=== PATIENT | male | born 1945 | race Caucasian/White ===

== ENCOUNTER 2016-10-21 06:21 | Day surgery (SDC) | payer MEDICARE ==
[~2016-10-21] VITALS: Ht 172.7 cm; Wt 80.1 kg
[~2016-10-21 06:21] MED LIST: ADVAI100I PO; ALBU8I INH; ASPI81TA82 PO; ATOR20TA PO; CLOP75 PO; CYCL1PAK PO; FISH100020 PO; FLON0.053; LANO0.1212 PO; LISI-357 PO; METO25 PO; MONT10 PO; SPIRCAP INH; Z.0.NO CURRENT MEDS; ZOLP5TAB3 PO; [UNRECOGNIZED DRUG - CODE] PO
[2016-10-21] MEDS ORDERED: SODIUM CHLORIDE 0.9% FLUSH 10 ML FLUSH IV FLUSH PRN ×2 (06:45)
[2016-10-21] MEDS ORDERED: SODIUM CHLOR 0.9% 1000 ML INJ 1,000 ML IV SCH (06:45)
[2016-10-21 06:57] VITALS: BP 136/78; PULSE 84; RESP 16; TEMP 97.9; O2SAT 95
[2016-10-21] MEDS ORDERED: VENTAER INH (07:04)
[2016-10-21] MEDS ORDERED: CYCL1TAB29 PO (07:04)
[2016-10-21] MEDS ORDERED: DIGO0.12 PO (07:04)
[2016-10-21] MEDS ORDERED: CILO100T PO (07:04)
[2016-10-21] MEDS ORDERED: LISI-519 PO (07:04)
[2016-10-21] MEDS ORDERED: FLUT50SP EACH NARE (07:04)
[2016-10-21] MEDS ORDERED: ATOR20TA15 PO (07:04)
[2016-10-21] MEDS ORDERED: METO50TA PO (07:04)
[2016-10-21] MEDS ORDERED: ZOLP5TAB3 PO (07:04)
[2016-10-21] MEDS ORDERED: ASPI1TAB69 PO (07:04)
[2016-10-21] MEDS ORDERED: IOHEXOL 350 MG/ML 100 ML BTL (for Cath Lab) OTHER ONE (08:30)
[2016-10-21] MEDS ORDERED: IOHEXOL 350 MG/ML 50 ML BTL (for Cath Lab) OTHER ONE (08:30)
[2016-10-21] MEDS ORDERED: MIDAZOLAM HCL 5 MG/5 ML VIAL ONE (08:39)
[2016-10-21] MEDS ORDERED: HEPARIN-NS/PF INJ 500 ML ONE (08:40)
[2016-10-21] MEDS ORDERED: ONDANSETRON HCL 4 MG/2 ML VIAL IV PRN (09:30)
[2016-10-21] MEDS ORDERED: BACITRACIN OINT 0.9 GM PKT TOP ONE (09:30)
[2016-10-21] MEDS ORDERED: ATROPINE SULFATE 1 MG/ML VIAL IV PRN (09:30)
[2016-10-21] MEDS ORDERED: METOCLOPRAMIDE HCL 10 MG/2 ML VIAL IV PRN (09:30)
[2016-10-21] MEDS ORDERED: SODIUM CHLOR 0.9% 250 ML INJ 250 ML IV PRN (09:30)
[2016-10-21] MEDS ORDERED: oxyCODONE/ACETAMINOPHEN 5 MG/325 MG TAB PO PRN ×2 (09:30)
[2016-10-21] MEDS ORDERED: LORazepam 2 MG/ML VIAL IV PRN (09:30)
[2016-10-21] MEDS ORDERED: MISC INFORMATION XX ONE (09:30)
[2016-10-21] MEDS ORDERED: LIDOCAINE HCL 1% 50 ML VIAL INFIL PRN (09:30)
--- NOTE | 2016-10-21 09:34 | CATHPROC ---
[employer] HIS Report Study Information Study Number Scheduled Start Study Start [id number] 10/21/2016 Oct 21 2016 8:00AM Referring Institution Admit Source Facility Department 1 Other [facility] - Store Keeper Physician and Clinical Staff Initial Serjio Roca Bank Clerk Jus Kinsey,RN Recorder Alon Bishop,RT(R) Scrub Piper Ochoa,SENIOR SOFTWARE TEST ENGINEER TECH2 Procedures Performed Procedure Location (Site) Vessel Name Abdominal Angiogram Abd Aorta (A3) Aorta Wire insertion Fem Art (right) Femoral Art Equipment Time Salt Cutter Description Size Mfg Part Number Used/Scraped 08:45 CORDIS/ RUIZ RIM SUPER TORQUE CATHETER FR 5 [id number] Used 08:45 MALLINCKRODT SYRINGE, ANGIOMAT 150ML 150ML [id number] Used 08:45 MEDLINE [employer] PACK, CCL CUSTOM * [id number] Used 08:45 MEDLINE PACER PEN, SKIN DUAL W/ RULER * [id number] Used 08:45 [employer] MEDICAL WIRE, EXCHANGE 260CM 3MMJ 260CM [id number] Used 08:45 NAMIC MANIFOLD, 4 PORT * [id number] Used 08:45 NAMIC TUBING, HIGH PRESSURE 48" 48" [id number] Used 09:05 NAMIC TUBING, HIGH PRESSURE 48" 48" [id number] Used 08:45 NYCOMED OMNIPAQUE, 300 MG, 100ML 100ML [id number] Used 08:45 NYCOMED OMNIPAQUE, 300 MG, 100ML 100ML [id number] Used 08:45 NEGRO MEDICAL BLANKET,WARM AIR CCL * [id number] Used 08:45 TERUMO MEDICAL SHEATH, FR5 TERUMO (10CM) FR 5 [id number] Used WIRE, ANGLE GLIDE STIFF .035 08:45 TERUMO MEDICAL/RUIZ 260CM [id number] Used 260CM History: Allergies Allergy Reaction No Known Allergies History: Stress Tests Stress or Imaging Studies Performed No Medication Medication Total Dose (Bolus/Oral) Medication Total Dosage/Unit 1% XYLOCAINE 20 mL FENTANYL 50 mcg OXYGEN 2 l/min VERSED 2 mg Medications (Bolus/Oral) Medication Time Given Dosage/Unit Administered By Reason FENTANYL 10/21/2016 8:58:23 AM 50 mcg Jus Kinsey 50 mcg FENTANYL given in lab by Jus Kinsey, RN in Left Antecubital via Peripheral IV. Ordered by Serjio Ramírez. VERSED 10/21/2016 8:58:44 AM 2 mg Jus Kinsey 2 mg VERSED given in lab by Jus Kinsey, RN in Left Antecubital via Peripheral IV. Ordered by Serjio Castillo. 1% XYLOCAINE 10/21/2016 9:03:02 AM 20 mL Serjio Ramírez 20 mL 1% XYLOCAINE given in lab by Serjio Ramírez in Right Groin via Subcutaneous. Ordered by Serjio Ramírez. OXYGEN 10/21/2016 9:04:01 AM 2 l/min Jus Kinsey 2 l/min OXYGEN given in lab by Jus Kinsey, RN via Nasal. Ordered by Serjio Ramírez. Medication (Drip) Medication Time Given Dosage/Unit Concentration/Unit Diluent (ml) Solution IV Solutions 10/21/2016 8:43:05 AM 0 mL (IV) 500 NaCl .9 Patient arrived on IV Solutions in Left Antecubital via Peripheral IV. Pump/Drip Flow = 20 ml/hr usin g NaCl .9. Reason: As per physicians verbal order. Initial Case Assessment Cardiovascular HR Rhythm NIBP Chest Pain 73 sr 113/76 0 Edema Present Skin color Skin None Normal Warm Dry Circulatory - Right Pulses Dorsalis Pedis Posterior Tibial Femoral d 1 3 Scale (0,1,2,3,4,d) Circulatory - Left Pulses Dorsalis Pedis Posterior Tibial Femoral 0 d d Scale (0,1,2,3,4,d) Neurological State Oriented to time-place- Alert Moves all extremities person Respiration - General Respiration Rate SpO2 (%) O2 (lpm) (B/min) 18 98 0 Final Case Assessment Cardiovascular HR Rhythm NIBP Chest Pain 75 SR 99/63 0 Edema Present Skin color Skin None Normal Warm Dry Circulatory - Right Pulses Dorsalis Pedis Posterior Tibial Femoral d 1 3 Scale (0,1,2,3,4,d) Circulatory - Left Pulses Dorsalis Pedis Posterior Tibial Femoral 0 d d Scale (0,1,2,3,4,d) Neurological State Oriented to time-place- Alert Moves all extremities person Respiration - General Respiration Rate SpO2 (%) O2 (lpm) (B/min) 15 98 2 Chronological Log Time Study Chronological Log 8:30:21 Patient arrived via Bed. 8:30:24 Patient Name, D.O.B, / Armband Verified By R.N. 8:30:25 Consent signed by the physician and the patient and verified by the Store Keeper staff. 8:30:26 Pre-op and post- op instructions given; patient acknowledges understanding of instructions. 8:30:55 Verbal Stimulation=2 Physical Stimulation=2 Airway=2 Respiration=2 TOTAL=8. (0=absent, 1=li mited, 2=present) Vitals capture started with the following parameters, Patient=Adult, Interval=5 min, Initial Pr zzhsqs=392 mmHg, 8:34:57 Deflation Rate=5 mmHg 8:35:35 HR=77 bpm, TQSZ=706/73 mmhg, SpO2=98.0 %, Resp=23 B/min, Vargas=2 8:40:32 HR=74 bpm, PKNC=633/76 mmhg, SpO2=99.0 %, Resp=17 B/min, Vargas=2 8:42:07 Presedation assessment performed by Store Keeper RN. 8:42:14 Patient has been NPO for More than 6Hrs. 8:42:21 Skin Breakdown-none present per patient. 8:42:53 A # 20 IV was noted in the Antecubital (left). Grade = 0 Patient arrived on IV Solutions in Left Antecubital via Peripheral IV. Pump/Drip Flow = 20 ml/h r using NaCl .9. Reason: 8:43:05 As per physicians verbal order. Assessment: Initial Case, HR=73 BPM, Rhythm=sr, UVVF=744/76 mmhg, Chest Pain=0, Edema=None, Col or=Normal, Skin = Warm, Dry Right Pulses: Carlos Eduardo Ped=d, Post Tib=1, Femoral=3 8:43:26 Left Pulses: Carlos Eduardo Ped=0, Post Tib=d, Femoral=d Neurological: State=Alert, Ox3, MATA Respiration: Resp=18 B/min, SpO2=98 %, O2=0 lpm 8:44:27 Bilateral groins prepped with 2% chlorhexidine, and with a 3 min. waiting time. 8:45:29 UP=304 bpm, GZGG=988/81 mmhg, SpO2=98.0 %, Resp=13 B/min, Vargas=2 8:48:37 Bilateral groins prepped with 2% chlorhexidine, and with a 3 min. waiting time. 8:50:25 Pressure channel 1 zeroed. 8:50:32 HR=75 bpm, ADWA=921/80 mmhg, SpO2=98.0 %, Resp=17 B/min, Vargas=2 8:52:06 paged 8:56:06 HR=86 bpm, UHJN=324/75 mmhg, SpO2=96.0 %, Resp=19 B/min, Vargas=2 8:56:53 MD arrived. 8:58:23 50 mcg FENTANYL given in lab by Jus Kinsey, RN in Left Antecubital via Peripheral IV. Or dered by Serjio Ramírez. 8:58:44 2 mg VERSED given in lab by Jus Kinsey, RN in Left Antecubital via Peripheral IV. Ordere d by Serjio Ramírez. 9:00:36 HR=75 bpm, TDOF=327/61 mmhg, SpO2=92.0 %, Resp=13 B/min, Vargas=2 Time Out. Correct patient, correct procedure,correct physician, ,power injector loaded with cont rast with surgical team 9:01:30 present. Time Out Concurred by MD, individual staff and INTERNAL MEDICINE PHYSICIAN ASSISTANT in procedure. Power injector lo aded by Jus Kinsey RN, verified by Piper Ochoa. 9:02:46 Case Start 9:02:49 Verbal Stimulation=2 Physical Stimulation=2 Airway=2 Respiration=2 TOTAL=8. (0=absent, 1=tompkins ited, 2=present) 9:03:02 20 mL 1% XYLOCAINE given in lab by Serjio Ramírez in Right Groin via Subcutaneous. Ordered b y Serjio Ramírez. 9:04:01 2 l/min OXYGEN given in lab by Jus Kinsey, RN via Nasal. Ordered by Serjio Ramírez. 9:05:20 Access site was Right Femoral Artery. 9:05:31 HR=81 bpm, BGXS=459/67 mmhg, SpO2=97.0 %, Resp=10 B/min, Vargas=2 9:05:36 A SHEATH, FR5 TERUMO (10CM) FR 5 was advanced into the Fem Art (right) using the Modified Se herrera technique. A PIGTAIL ANG. INFINITI CATHETER FR 5 was advanced over a wire. OMNIPAQUE, 300 MG, 100ML 100ML w as used 9:06:39 for injections. 9:08:05 Wire removed 9:08:11 Through a PIGTAIL ANG. INFINITI CATHETER FR 5, The Abdominal Aorta was injected with 12 cc's of contrast. A RIM SUPER TORQUE CATHETER FR 5 was advanced over a wire. OMNIPAQUE, 300 MG, 100ML 100ML was us ed for 9:09:02 injections. 9:10:32 HR=72 bpm, UKAH=650/68 mmhg, SpO2=97.0 %, Resp=12 B/min 9:10:33 Manual injections down left leg through 5 burmese rim catheter. 9:14:19 A WIRE, EXCHANGE 260CM 3MMJ 260CM was inserted via Fem Art (right). 9:14:30 Catheter was removed OTW. 9:15:25 Wire removed 9:15:33 HR=74 bpm, HHVC=094/65 mmhg, SpO2=98.0 %, Resp=12 B/min, Vargas=2 9:15:38 Manual injections down right leg through 5 burmese sheath. 9:17:14 Case End 9:18:20 Sheath removed; pressure applied to access site by Piper Ochoa. 9:20:36 HR=75 bpm, NIBP=94/61 mmhg, SpO2=98.0 %, Resp=13 B/min, Vargas=2 9:25:11 No case complications noted. 9:25:19 Cine recording checked. 9:25:24 Bedside Report will be given. 9:25:31 HR=75 bpm, NIBP=99/63 mmhg, SpO2=97.0 %, Resp=13 B/min, Vargas=2 9:25:51 Contrast Scanned Assessment: Final Case, HR=75 BPM, Rhythm=SR, NIBP=99/63 mmhg, Chest Pain=0, Edema=None, Color =Normal, Skin = Warm, Dry Right Pulses: Carlos Eduardo Ped=d, Post Tib=1, Femoral=3 9:26:15 Left Pulses: Carlos Eduardo Ped=0, Post Tib=d, Femoral=d Neurological: State=Alert, Ox3, MATA Respiration: Resp=15 B/min, SpO2=98 %, O2=2 lpm 9:28:53 Sterile dressing applied to site 9:30:32 HR=76 bpm, NIBP=97/67 mmhg, SpO2=98.0 %, Resp=16 B/min, Vargas=2 9:30:46 Vitals capture stopped. 9:34:30 Patient moved to stretcher End Study - Contrast Media Used In Study Contrast Total Opened (mL) Total Used (mL) Total Wasted (mL) Omnipaque 90 90 0 End Study - Radiation Exposure Fluoro Time (minutes) 2.1 End Study - Patient Disposition Complications Transferred To No Outpatient Bed
--- NOTE | 2016-10-21 11:05 | MA ---
cc: MIRTHA GROVER DATE: 10/21/2016 PROCEDURE PERFORMED 1. Fluoroscopy with interpretation. 2. Descending aortography. 3. Bilateral lower extremity peripheral angiography with first, second, third order visualization and interpretation. METHOD The risks, benefits and alternatives were discussed with the patient. The patient understood and consented to the procedure. The patient was brought into the catheterization lab and placed on the catheterization table. The right groin was prepped and draped in sterile fashion. The right groin was anesthetized with 2% lidocaine. The right common femoral was cannulated and a 5-Emirati, 11 cm sheath was placed without difficulty. DESCENDING AORTOGRAPHY Descending aortography was performed in anterior and posterior views using a 24 cc contrast injection with good opacification. The descending aortography revealed a small infrarenal aortic aneurysm, bilateral renal arteries widely patent. PERIPHERAL ANGIOGRAPHY 1. The left common iliac artery has a distal 40% eccentric stenosis. The left internal and external iliac arteries have minor luminal irregularities. The left common femoral is heavily calcified and occluded. The left superficial femoral artery recanalizes via collaterals along with the profunda both of which have only minor luminal irregularities. The left popliteal has minor luminal irregularities. There is three-vessel runoff below the knee. Distal vessel at the level of the ankle is not well-visualized due to slow flow. 2. The right common internal and external iliac arteries have minor luminal irregularities. The right common femoral and profunda arteries are widely patent. The right superficial femoral and popliteal arteries have minor luminal irregularities. There does appear to also be three-vessel runoff below the knee in the right lower extremity, although again flow is slow distally due to small vessel disease. CONCLUSIONS 1. 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 2. 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 3. Small vessel distal infrapopliteal disease bilaterally. 4. Small infrarenal aortic aneurysm. PLAN At this point I think he would be served best with a common femoral artery endarterectomy. Will consult vascular surgery. He is already on cilostazol. Anticipate discharge later today. The sheath was removed and HemoBand applied. MD BRENDA Mcclure/MIKAYLA /9:29 AM /10:57 AM
--- NOTE | 2016-10-21 11:15 | PD.VS.PN ---
Subjective Subjective/Hospital Course Pt with L LE claudication , no rest pain or tissue loss Notes that his LEFT leg hurts with ambulating modest distances. Objective Vitals/I&O Date Time Temp Pulse Resp B/P Pulse Ox O2 Delivery O2 Flow Rate FiO2 10/21/16 09:45 98 Room Air 10/21/16 06:57 97.9 84 16 136/78 95 Physical Exam resting in DOCU, no distress alert and oriented. Laboratory Laboratory Tests Test 10/21/16 06:50 Blood Type A POSITIVE Antibody Screen NEGATIVE Blood Bank Comment Imaging angiogram reviewed - CERTIFIED MAINTENANCE WELDER occlusion with distal CERTIFIED MAINTENANCE WELDER reconstitution; no inflow disease and good outflow Assessment and Plan Plan I talked with him and his about natural history of claudication and potential intervention to improve circulation (CERTIFIED MAINTENANCE WELDER TEA/patch vs iliofemoral bypass). Discussed perioperative risks/benefits. They will see me in my office at their convenience to schedule. Thank you very much. Edmar Handy MD FACS potato loader [facility] - Heart and Vascular Surgery at [facility] [phone] Edmar Handy MD October 21, 2016 11:15
== END 2016-10-21 14:10 | disposition home or self-care (01) ==
LOC: HCAT 06:21 → HDIC 06:22 → HCAT 14:10
PROVIDERS: ATTEND Internal Medicine
DX: I73.9 Peripheral vascular disease, unspecified (principal); I74.5 Embolism and thrombosis of iliac artery; I77.811 Abdominal aortic ectasia; I70.0 Atherosclerosis of aorta; E11.51 Type 2 diabetes mellitus with diabetic peripheral angiopathy without gangrene; J44.9 Chronic obstructive pulmonary disease, unspecified; J20.9 Acute bronchitis, unspecified; I48.0 Paroxysmal atrial fibrillation; E87.5 Hyperkalemia; I10 Essential (primary) hypertension; E78.5 Hyperlipidemia, unspecified; R00.0 Tachycardia, unspecified; J06.9 Acute upper respiratory infection, unspecified; Z87.891 Personal history of nicotine dependence
CPT/HCPCS: 36200; 36245; 75625; 75716; 86850; 86900; 86901; C1769; C1893; J1644; J2250; J3010; J7030; Q9967

== ENCOUNTER 2016-11-16 10:57 | Inpatient (IN) | payer MEDICARE ==
[~2016-11-16] VITALS: Ht 172.7 cm; Wt 79.0 kg
[~2016-11-16 10:57] MED LIST changes: -ASPI1TAB69 PO; -ASPI81TA11 PO; -CYCL1TAB29 PO; -HYDR-3516 PO; -OXYC-392 PO; -UMEC1AER INH; -WALKER WHEELS/F1 MIS
[2016-11-16] MEDS ORDERED: UMEC1AER INH (11:44)
[2016-11-16] MEDS ORDERED: ASPI81TA11 PO (11:44)
[2016-11-21] VITALS (12 sets, daily range): BP systolic 119–131; BP diastolic 70–78; PULSE 68–88; RESP 15–18; TEMP 97.9–98.4; O2SAT 93–94
[2016-11-21] MEDS ORDERED: POVIDONE IODINE 5% (ANTISEPSIS KIT) 4 APPLICATIONS EACH NARE PRN (10:45)
[2016-11-21] MEDS ORDERED: SODIUM CHLORID 0.9% 500 ML IV PRN (10:45)
[2016-11-21] MEDS ORDERED: METOPROLOL TARTRATE 25 MG TAB PO PRN (10:45)
[2016-11-21] MEDS ORDERED: INSULIN HUMAN REGULAR 1,000 UNITS/10 ML VIAL SQ PRN (10:45)
[2016-11-21] MEDS ORDERED: LACTATED RINGER'S 1000 ML IV PRN (10:45)
[2016-11-21] MEDS ORDERED: CHLORHEXIDINE GLUCONATE 2 % 1 PACK (2 CLOTHS) TOPICAL PRN (10:45)
--- NOTE | 2016-11-21 11:05 | PD.VS.PN ---
Pre-operative Note Pre-operative diagnosis: PAD, L LE claudication Planned procedure: L groin reconstruction Interval History: The patient has persistent L LE claudication but no rest pain and no tissue loss. No F/C/N/V or other medical symptoms that should preclude surgery. Labs: Hct 44 plt 271 Cr 1.1 Blood: T&S Imaging: LE angiogram reviewed Orders: NPO Ancef 2g IV OCTOR Post-operative destination: PACU, [facility] Operative site marked: Yes Consent: Informed consent has been obtained from Edmar Flower. I have explained the procedure in detail and discussed the risks, benefits, and potential complications. All questions have been answered. Patient contact information: [phone] Edmar Handy MD Nov 21, 2016 11:04
[2016-11-21] MEDS ORDERED: BUPIVACAINE/EPINEPHRINE 0.5% PF 30 ML VIAL ONE (11:19)
[2016-11-21] MEDS ORDERED: VANCOMYCIN HCL 1000 MG VIAL ONE (11:19)
[2016-11-21] MEDS ORDERED: THROMBIN (TOPICAL) 20,000 UNIT SPRAY KIT ONE (11:19)
[2016-11-21] MEDS ORDERED: ceFAZolin 2 GM PREMIX 50 ML ONE (11:19)
[2016-11-21] MEDS ORDERED: HEPARIN SODIUM - IV 10,000 UNITS/10 ML VIAL ONE (11:19)
[2016-11-21 13:26] LABS: MRSA PCR NEGATIVE (NEGATIVE); STAPH AUREUS PCR POSITIVE (NEGATIVE)
[2016-11-21] MEDS: LACTATED RINGER'S 1000 ML INJ 1,000 ML IV SCH ×2 (14:06→15:00)
--- NOTE | 2016-11-21 14:06 | HHI.PR ---
cc: Serjio Ramírez MD Immediate Post Op Note Procedure Date: Nov 21, 2016 Pre Op Diagnosis: LEFT leg claudication, PAD Post Op Diagnosis: LEFT leg claudication, PAD Surgeon: Edmar Handy Erp Consultant(s): Agapito Mcwilliams Procedure: 1. LEFT ilioprofunda bypass with 8mm Dacron 2. LEFT INSURANCE ASSISTANT-SFA bypass with 6mm Dacron Findings: occlusion of L INSURANCE ASSISTANT and calcific disease of L SFA proximally as well as proximal profunda Complications: none apparent Specimen(s) removed: none for pathology Estimated blood loss: 100mL Anesthesia: General Drains: None Fluids: 1400 mL x'oid; 150 mL UOP IVF Patient to: PACU Patient Condition: Good Implant/Devices: SEE IMPLANT LOG (if applicable) Date/Time of Procedure: SEE SURGICAL CARE RECORD Edmar Handy MD Nov 21, 2016 14:05
[2016-11-21] MEDS ORDERED: fentaNYL CITRATE 250 MCG/5 ML AMP ONE (14:15)
[2016-11-21] MEDS ORDERED: HYDROmorphone HCL 2 MG TAB PO PRN (14:15)
[2016-11-21] MEDS ORDERED: DO NOT ADM ANY ANTICOAGULANT DRUGS PRN (14:25)
[2016-11-21] MEDS: ENOXAPARIN SODIUM 30 MG/0.3 ML SYRINGE SQ SCH (15:00)
[2016-11-21] MEDS ORDERED: PROPOFOL 200 MG/20 ML AMP IV ONE (15:58)
[2016-11-21] MEDS ORDERED: PHENYLEPHRINE HCL 10 MG/ML VIAL IV ONE (15:58)
[2016-11-21] MEDS ORDERED: PHENYLEPH/NS 1000 MCG/10 ML SYR IV ONE (15:58)
[2016-11-21] MEDS ORDERED: NEOSTIGMINE METHYLSULFATE 10 MG/10 ML VIAL IV PUSH ONE (15:59)
[2016-11-21] MEDS ORDERED: NORMOSOL R INJ 1,000 ML IV ONE (15:59)
[2016-11-21] MEDS ORDERED: LORazepam 1 MG TAB PO PRN (16:30)
[2016-11-21] MEDS ORDERED: FLUMAZENIL 0.5 MG/5 ML VIAL IV PUSH PRN (16:30)
[2016-11-21] MEDS ORDERED: LORazepam 2 MG TAB PO PRN (16:30)
[2016-11-21] MEDS ORDERED: LORazepam 2 MG/ML VIAL IV PUSH PRN ×4 (16:30)
--- NOTE | 2016-11-21 16:41 | PD.VS.PN ---
Subjective POD #: 0 Procedure(s): L groin reconstruction Subjective/Hospital Course doing well, pain controlled Objective Vitals/I&O Date Time Temp Pulse Resp B/P Pulse Ox O2 Delivery O2 Flow Rate FiO2 11/21/16 10:45 97.9 68 18 119/70 94 Exam: resting comfortable VAC in place Palpable PT Motor intact Laboratory Laboratory Tests Test 11/21/16 10:55 Nasal Screen MRSA (PCR) NEGATIVE Staphylococcus aureus POSITIVE (PCR)(LAB) Blood Type A POSITIVE Antibody Screen NEGATIVE Assessment and Plan Plan 1. Cardac diet 2. OOB TC tomorrow 3. D/C Wilcox in a.m. 4. Resume all home meds Discharge Planning likely Mon Edmar Handy MD Nov 21, 2016 16:41
[2016-11-21] MEDS: ATORVASTATIN 40 MG TAB PO SCH (20:34)
[2016-11-21] MEDS: METOPROLOL TARTRATE 50 MG TAB PO SCH (20:35)
[2016-11-21] MEDS: ZOLPIDEM TARTRATE 5 MG TAB PO PRN (21:09)
[2016-11-22] VITALS (27 sets, daily range): BP systolic 102–127; BP diastolic 64–77; PULSE 74–92; RESP 15–19; TEMP 98.4–99.9; O2SAT 93–96
--- NOTE | 2016-11-22 08:26 | PD.VS.PN ---
Subjective POD #: 1 Procedure(s): L groin reconstruction Subjective/Hospital Course Pt w/o complaints this am Reported he needs his daily nasal spray Pt w/o pain Objective Vitals/I&O Date Time Temp Pulse Resp B/P Pulse Ox O2 Delivery O2 Flow Rate FiO2 11/22/16 06:19 76 11/22/16 05:00 82 11/22/16 04:08 78 11/22/16 03:47 77 11/22/16 03:47 98.6 83 15 121/66 95 11/22/16 02:00 79 11/22/16 01:35 87 11/22/16 00:00 74 11/21/16 23:54 98.4 82 15 122/76 94 11/21/16 23:00 78 11/21/16 22:00 78 11/21/16 21:00 78 11/21/16 20:00 84 11/21/16 19:55 98.3 88 15 131/78 93 11/21/16 19:00 87 11/21/16 18:34 87 11/21/16 17:16 77 11/21/16 16:47 75 11/21/16 15:45 72 11/21/16 15:30 97.9 70 18 114/66 96 Room Air 11/21/16 15:15 70 18 116/67 95 Room Air 11/21/16 15:00 73 17 110/65 96 Room Air 11/21/16 14:45 76 17 145/75 100 Nasal Cannula 3 11/21/16 14:28 97.9 75 17 151/76 100 Nasal Cannula 3 11/21/16 10:45 97.9 68 18 119/70 94 Exam: GENERAL: A&OX3, GCS 15, NAD SKIN: Warm and dry. Wound vac to L groin intact no hematoma CARDIOVASCULAR: RRR, +s1,s2 RESPIRATORY: BS CTA /No accessory muscle use. GASTROINTESTINAL: Abdomen S/NT MUSCULOSKELETAL: No cyanosis, or edema. bilat feet warm with motor intact Bilat DP/PT w/ triphasic signals Pulses: + DP/PT bilat Incisions: wound vac intact to L groin region w/o hematoma Laboratory Laboratory Tests Test 11/21/16 10:55 Nasal Screen MRSA (PCR) NEGATIVE Staphylococcus aureus POSITIVE (PCR)(LAB) Blood Type A POSITIVE Antibody Screen NEGATIVE Assessment and Plan Assessment: (1) PAD (peripheral artery disease) Status: Acute Plan Plan D/C aleena D/C MIVF PT/OOB Resume all home meds Porsha BHAT [facility] [phone] Discharge Planning Potentially Tomorrow am Porsha Grace Nov 22, 2016 08:26
[2016-11-22 08:44] LABS: HEMATOCRIT 38.3 % (39.0-51.0); MEAN CELL VOLUME 91.6 FL (80.0-100.0); MEAN CORPUSCULAR HGB CONC 33.8 % (32.0-36.0); PLATELET COUNT 212 TH/MM3 (150-450); RED BLOOD COUNT 4.19 MIL/MM3 (4.50-5.90); RED CELL DISTRIBUTION WIDTH 14.7 % (11.6-17.2); REVIEW FLAG FINAL; WHITE BLOOD COUNT 10.6 TH/MM3 (4.0-11.0)
[2016-11-22] MEDS: UMECLIDINIUM 62.5 MCG/VILANTEROL 25 MCG INHALER INH SCH (09:00)
[2016-11-22] MEDS: METOPROLOL TARTRATE 50 MG TAB PO SCH ×2 (09:14→21:23)
[2016-11-22] MEDS: LISINOPRIL 5 MG TAB PO SCH (09:14)
[2016-11-22] MEDS: ALBUTEROL SULFATE 90 MCG/ACT HFA 18 GM INHALER INH PRN (09:15)
[2016-11-22] MEDS: DIGOXIN 0.125 MG TAB PO SCH (09:15)
[2016-11-22] MEDS: PANTOPRAZOLE SOD 40 MG DELAYED RELEASE TAB PO SCH (09:15)
[2016-11-22] MEDS: ASPIRIN 81 MG CHEW TAB CHEW SCH (09:15)
[2016-11-22] MEDS: FLUTICASONE PROPIONATE 50 MCG/ACT 16 GM NASAL SPRAY EACH NARE SCH ×2 (09:16→21:00)
[2016-11-22 09:19] LABS: BICARBONATE 25.5 MEQ/L (21.0-32.0); POTASSIUM 3.8 MEQ/L (3.5-5.1)
--- NOTE | 2016-11-22 12:27 | MP ---
cc: SUZIE HANDY MD DATE OF SURGERY 11/21/2016 PREOPERATIVE DIAGNOSES Left lower extremity claudication. Peripheral vascular disease POSTOPERATIVE DIAGNOSES Left lower extremity claudication. Peripheral vascular disease PROCEDURE 1. Left ilioprofunda bypass with 8-mm Dacron. 2. Left common-superficial femoral artery bypass with a 6-mm Dacron. ATTENDING SURGEON Suzie Handy MD RESIDENT SURGEON None. VACUUM METALIZER OPERATOR Agapito Mcwilliams ANESTHESIA General. INDICATIONS Mr. Flower is a gentleman with left leg claudication and previous angiogram which showed common femoral artery occlusion. He is taken to the operating room for surgical reconstruction. Intraoperatively it was found that the patient had common femoral artery occlusion as well as proximal SFA occlusion and he was reconstructed all with a prosthetic. DESCRIPTION OF PROCEDURE Informed consent was obtained from the patient. He was taken to the operating room and placed supine on the operating room table and appropriate time-out was taken to insure the patient's identify, operative site and the planned procedure. 2 grams of Ancef were initiated prior to the skin incision and will be discontinued after a single preoperative dose. Everyone in the room agreed with the time-out procedure. He was prepped from his nipples to his toes and a vertical incision made in the patient's left groin, carried down through the subcutaneous tissue with electrocautery. The common femoral artery was identified. The external iliac artery was identified and encircled with vessel loops. We dissected down to the common femoral artery which was quite calcific and the proximal SFA was calcific as well. We dissected down to profunda as well. The patient was then systemically heparinized and the proximal and distal control of the external common femoral artery, profunda and SFA were all clamped with profunda clamps. The entire artery as excised and Austin scissors used to incise the inferior aspect of each blood vessel. An 8-mm Dacron was brought up onto the field, spatulated and sewn end-to-end to the external iliac artery with running 5-0 Prolene suture. The patient was flushed, made hemostatic. A Anny Soft-Gel was placed on this graft. The graft was cut to appropriate length, spatulated and sewn end-to-end to the profunda with running 6-0 Prolene suture. At the completion it was flushed, noted to be hemostatic and the clamps were released. There was a nice pulse in the profunda. The graft was then clamped and a longitudinal graftotomy was made with an #11 blade, extended with Reji scissors. A 6-mm Dacron was spatulated and sewn end-to-side to the side of the graft with running 5-0 Prolene suture and then the other end was spatulated after being cut to an appropriate length and sewn end-to-end to the SFA with running 6-0 Prolene suture. At the completion it was flushed, noted to be hemostatic. There was a nice pulse in the SFA and profunda. All anastomoses were hemostatic. There was a nice Doppler signal in the foot. The heparin was reversed with Protamine. The wound was irrigated, made hemostatic with Surgicel and spray Thrombin and closed with 2-0 Polysorb, 3-0 Polysorb, and 4-0 Monocryl. Sponge, needle and instrument counts were correct at the end of the case. I was present and scrubbed and performed the entire procedure. MD ALETHEA Diego/SOHAN /4:51 PM /12:11 PM
[2016-11-22] MEDS: ENOXAPARIN SODIUM 30 MG/0.3 ML SYRINGE SQ SCH (14:15)
[2016-11-22] MEDS: ATORVASTATIN 40 MG TAB PO SCH (21:23)
[2016-11-22] MEDS: ZOLPIDEM TARTRATE 5 MG TAB PO PRN (22:19)
[2016-11-23] VITALS (26 sets, daily range): BP systolic 109–130; BP diastolic 59–75; PULSE 63–88; RESP 16–19; TEMP 98–99.3; O2SAT 93–98
--- NOTE | 2016-11-23 06:18 | PD.VS.PN ---
Subjective POD #: 2 Procedure(s): L groin reconstruction Subjective/Hospital Course Pt w/o complaints this am Groin still sore with changing positions. Viral po Voiding Objective Vitals/I&O Date Time Temp Pulse Resp B/P Pulse Ox O2 Delivery O2 Flow Rate FiO2 11/23/16 05:18 79 11/23/16 04:40 82 11/23/16 03:41 81 11/23/16 03:41 98.9 81 19 111/64 93 11/23/16 02:00 80 11/23/16 01:00 78 11/23/16 00:18 83 11/22/16 23:31 82 11/22/16 23:15 98.7 83 16 126/74 96 11/22/16 22:00 92 11/22/16 21:00 84 11/22/16 20:00 91 11/22/16 20:00 99.9 85 18 127/77 94 11/22/16 18:09 91 11/22/16 17:00 88 11/22/16 16:00 92 11/22/16 15:15 98.9 84 17 126/70 94 11/22/16 15:00 84 11/22/16 14:00 78 11/22/16 13:01 82 11/22/16 12:30 75 11/22/16 11:20 98.4 81 19 102/64 94 11/22/16 11:00 80 11/22/16 10:30 75 11/22/16 09:00 80 11/22/16 08:00 78 11/22/16 07:45 98.4 78 17 112/71 93 11/22/16 07:00 78 11/22/16 06:19 76 Exam: L groin vac in place Minimal swelling in groin no erythema Pulses: palpable PT Laboratory Laboratory Tests Test 11/22/16 06:57 White Blood Count 10.6 Red Blood Count 4.19 Hemoglobin 13.0 Hematocrit 38.3 Mean Corpuscular Volume 91.6 Mean Corpuscular Hemoglobin 31.0 Mean Corpuscular Hemoglobin 33.8 Concent Red Cell Distribution Width 14.7 Platelet Count 212 Mean Platelet Volume 8.5 Sodium Level 135 Potassium Level 3.8 Chloride Level 100 Carbon Dioxide Level 25.5 Anion Gap 10 Blood Urea Nitrogen 9 Creatinine 1.09 Estimat Glomerular Filtration 67 Rate Random Glucose 101 Calcium Level 8.2 Assessment and Plan Assessment: (1) PAD (peripheral artery disease) Status: Acute Plan Plan continue OOB/PT Reg diet reg meds d/c planning Discharge Planning morning RTC 2 weeks with ABIs Edmar Handy MD Nov 23, 2016 06:18
[2016-11-23] MEDS: PANTOPRAZOLE SOD 40 MG DELAYED RELEASE TAB PO SCH (08:48)
[2016-11-23] MEDS: METOPROLOL TARTRATE 50 MG TAB PO SCH ×2 (08:49→20:24)
[2016-11-23] MEDS: ASPIRIN 81 MG CHEW TAB CHEW SCH (08:49)
[2016-11-23] MEDS: UMECLIDINIUM 62.5 MCG/VILANTEROL 25 MCG INHALER INH SCH (08:49)
[2016-11-23] MEDS: ALBUTEROL SULFATE 90 MCG/ACT HFA 18 GM INHALER INH PRN (08:49)
[2016-11-23] MEDS: FLUTICASONE PROPIONATE 50 MCG/ACT 16 GM NASAL SPRAY EACH NARE SCH ×2 (08:49→20:25)
[2016-11-23] MEDS: DIGOXIN 0.125 MG TAB PO SCH (08:49)
[2016-11-23] MEDS: LISINOPRIL 5 MG TAB PO SCH (08:49)
[2016-11-23] MEDS ORDERED: CLOPIDOGREL 75 MG TAB PO SCH (09:00)
[2016-11-23] MEDS: ENOXAPARIN SODIUM 30 MG/0.3 ML SYRINGE SQ SCH (15:50)
[2016-11-23] MEDS: ATORVASTATIN 40 MG TAB PO SCH (20:24)
[2016-11-23] MEDS: ZOLPIDEM TARTRATE 5 MG TAB PO PRN (22:48)
[2016-11-24] VITALS (12 sets, daily range): BP systolic 123–127; BP diastolic 74–80; PULSE 70–81; RESP 16–18; TEMP 97.9–98.3; O2SAT 96–97
[2016-11-24] MEDS: PANTOPRAZOLE SOD 40 MG DELAYED RELEASE TAB PO SCH (08:50)
[2016-11-24] MEDS: ASPIRIN 81 MG CHEW TAB CHEW SCH (08:51)
[2016-11-24] MEDS: LISINOPRIL 5 MG TAB PO SCH (08:51)
[2016-11-24] MEDS: DIGOXIN 0.125 MG TAB PO SCH (08:51)
[2016-11-24] MEDS: METOPROLOL TARTRATE 50 MG TAB PO SCH (08:51)
[2016-11-24] MEDS: UMECLIDINIUM 62.5 MCG/VILANTEROL 25 MCG INHALER INH SCH (08:52)
[2016-11-24] MEDS: FLUTICASONE PROPIONATE 50 MCG/ACT 16 GM NASAL SPRAY EACH NARE SCH (08:52)
[2016-11-24] MEDS ORDERED: OXYC-392 PO (09:49)
--- NOTE | 2016-11-24 09:57 | PD.VS.DC ---
Discharge Summary Admission Date: Nov 21, 2016 at 09:47 Discharge Date: Nov 24, 2016 Admission Diagnosis: (1) PAD (peripheral artery disease) Discharge Diagnosis: (1) PAD (peripheral artery disease) Status: Acute Brief History from admission Pt with a hx of worsening left lower extremity PAD Procedure(s): L groin reconstruction Significant Findings GENERAL: A&OX3, NAD, GCS15 SKIN: Warm and dry CARDIOVASCULAR: +S1,S2 RESPIRATORY: BS CTA GASTROINTESTINAL: Abdomen S/NT/ BS + MUSCULOSKELETAL: No cyanosis, or edema. Laboratory Tests Test 11/22/16 06:57 Red Blood Count 4.19 MIL/MM3 (4.50-5.90) Hematocrit 38.3 % (39.0-51.0) Sodium Level 135 MEQ/L (136-145) Estimat Glomerular Filtration 67 ML/MIN (>89) Rate Calcium Level 8.2 MG/DL (8.5-10.1) Hospital Course: Pt with worsening PAD left side Left groin reconstruction done on 11/21/16 Pt w/o complications and improved symptoms Allergies Coded Allergies Type Severity Reaction Last Updated Verified No Known Allergies 11/22/16 No /////// 06:00 18:00 06:00 18:00 06:00 18:00 Intake Total 1240 ml 720 ml 960 ml 900 ml 720 ml Output Total 500 ml 1200 ml 2100 ml 1500 ml Balance 740 ml -480 ml -1140 ml 900 ml -780 ml Intake Oral 720 ml 720 ml 960 ml 900 ml 720 ml IV Total 520 ml Output Urine Total 500 ml 1200 ml 2100 ml 1500 ml # Voids 5 # Bowel Movements 0 Laboratory Tests Test 11/21/16 11/22/16 10:55 06:57 Nasal Screen MRSA (PCR) NEGATIVE Staphylococcus aureus POSITIVE (PCR)(LAB) Blood Type A POSITIVE Antibody Screen NEGATIVE White Blood Count 10.6 TH/MM3 Red Blood Count 4.19 MIL/MM3 Hemoglobin 13.0 GM/DL Hematocrit 38.3 % Mean Corpuscular Volume 91.6 FL Mean Corpuscular Hemoglobin 31.0 PG Mean Corpuscular Hemoglobin 33.8 % Concent Red Cell Distribution Width 14.7 % Platelet Count 212 TH/MM3 Mean Platelet Volume 8.5 FL Sodium Level 135 MEQ/L Potassium Level 3.8 MEQ/L Chloride Level 100 MEQ/L Carbon Dioxide Level 25.5 MEQ/L Anion Gap 10 MEQ/L Blood Urea Nitrogen 9 MG/DL Creatinine 1.09 MG/DL Estimat Glomerular Filtration 67 ML/MIN Rate Random Glucose 101 MG/DL Calcium Level 8.2 MG/DL Procedure Category Date Status Time Type And Screen BBK 11/21/16 Complete 10:13 Lactated Ringer's MED 11/21/16 Complete 1000 Ml Inj (Lr 1000 M 10:45 Sodium Chlorid 0.9% MED 11/21/16 Complete 500 Ml Inj (Ns 500 M 10:45 Metoprolol Tartrate MED 11/21/16 Complete (Lopressor) 10:45 Povidone Iod 5% MED 11/21/16 Complete Antisepsis Kit 10:45 Chlorhexidine 2% MED 11/21/16 Complete Cloth (Chlorhexidine 10:45 Insulin Human Regular MED 11/21/16 Complete Inj (Novolin R Inj 10:45 Nasal Mrsa/Sa Pcr LAB 11/21/16 Complete 10:57 Heparin Inj (Heparin MED 11/21/16 Complete Inj) 11:19 Bupivacaine-Epi Pf MED 11/21/16 Complete 0.5% Inj (Sensorcaine 11:19 Vancomycin Inj MED 11/21/16 Complete (Vancomycin Inj) 11:19 Cefazolin 2 Gm Premix MED 11/21/16 Complete (Ancef 2 Gm Premix 11:19 Thrombin Top [place] MED 11/21/16 Complete (Thrombin Top [place]) 11:19 Urinary Catheter CECE 11/21/16 Complete Management 12:33 Admit To Inpatient ADMITTING 11/21/16 Transmitted Code Status CODE 11/21/16 Transmitted 14:06 Vital Signs (Adult) CECE 11/21/16 Complete 14:06 Multimedia Producer / CECE 11/21/16 In Process Telemetry 14:06 Activity Oob Ad Madhavi CECE 11/22/16 In Process 09:00 Activity Bed Rest CECE 11/21/16 In Process 14:06 ^ Precautions CECE 11/21/16 In Process 14:06 ^ Vac Dressing To Be CECE 11/21/16 In Process Used 14:06 Diet Heart Healthy DIET 11/21/16 Transmitted Dinner Basic Metabolic Panel LAB 11/22/16 Complete (Bmp) 06:00 Cbc No Diff, Includes LAB 11/22/16 Complete Plts 06:00 Consult Pt Eval & PT 11/21/16 Logged Treat 14:06 Lactated Ringer's MED 11/21/16 Complete 1000 Ml Inj (Lr 1000 M 14:06 Aspirin Chew (Aspirin MED 11/22/16 In Process Chew) 09:00 Clopidogrel (Plavix) MED 11/23/16 Complete 09:00 Pantoprazole MED 11/22/16 In Process (Protonix) 09:00 Atorvastatin (Lipitor) MED 11/21/16 In Process 21:00 Oxycodone (Roxicodone) MED 11/21/16 In Process 14:15 Hydromorphone MED 11/21/16 In Process (Dilaudid) 14:15 Enoxaparin Inj MED 11/21/16 In Process (Lovenox Inj) 15:00 Inpatient ADMITTING 11/21/16 Transmitted Certification Digoxin (Lanoxin) MED 11/22/16 In Process 09:00 Lisinopril (Prinivil) MED 11/22/16 In Process 09:00 Metoprolol Tartrate MED 11/21/16 In Process (Lopressor) 21:00 Umeclidin-Vilanter MED 11/22/16 In Process 62.5-25 Inh (Anoro-El 09:00 Zolpidem (Ambien) MED 11/21/16 In Process 14:15 Fentanyl Inj MED 11/21/16 Complete (Fentanyl Inj) 14:15 Albuterol Hfa Inh MED 11/21/16 In Process (Ventolin Hfa Inh) 14:15 [facility] 11/21/16 Complete Information 14:25 Alcohol Withdrawal CECE 11/21/16 In Process Asmt-Ciwa 16:23 Flumazenil Inj MED 11/21/16 In Process (Romazicon Inj) 16:30 Lorazepam (Ativan) MED 11/21/16 In Process 16:30 Lorazepam Inj (Ativan MED 11/21/16 In Process Inj) 16:30 Lorazepam (Ativan) MED 11/21/16 In Process 16:30 Lorazepam Inj (Ativan MED 11/21/16 In Process Inj) 16:30 Lorazepam Inj (Ativan MED 11/21/16 In Process Inj) 16:30 Lorazepam Inj (Ativan MED 11/21/16 In Process Inj) 16:30 [facility]16 Complete Post Anesthesia Oxygen [facility] 11/21/16 Complete Am Admit Pre Op Care [facility] 11/21/16 Complete Remove Urinary CECE 11/22/16 In Process Catheter 07:59 Fluticasone Javier Spr MED 11/22/16 In Process (Flonase Javier Spr) 10:00 Consult Pt Eval & Tx PT 11/22/16 Complete OOB 08:27 Attending Discharge DISCHARGE 11/24/16 Transmitted Order Vital Signs Date Time Temp Pulse Resp B/P Pulse Ox O2 Delivery O2 Flow Rate FiO2 11/24/16 08:53 97.9 73 18 123/80 97 11/24/16 06:18 72 11/24/16 05:20 74 11/24/16 04:47 74 11/24/16 03:10 98.3 79 16 127/74 96 11/24/16 03:10 75 11/24/16 02:27 76 11/24/16 01:05 79 11/24/16 00:12 81 11/23/16 23:51 99.3 80 18 120/64 95 11/23/16 23:51 82 11/23/16 22:00 78 11/23/16 21:00 88 11/23/16 20:00 84 11/23/16 19:58 99.0 86 18 120/70 94 11/23/16 19:58 85 11/23/16 18:03 83 11/23/16 17:20 82 11/23/16 16:33 80 11/23/16 15:00 81 11/23/16 15:00 99.1 85 19 118/74 95 11/23/16 14:06 79 11/23/16 13:00 72 11/23/16 12:00 72 11/23/16 11:15 98.4 78 16 113/64 98 11/23/16 11:00 72 11/23/16 10:00 78 11/23/16 09:00 80 11/23/16 08:00 86 11/23/16 07:15 98.6 80 17 130/75 93 11/23/16 07:00 83 11/23/16 06:27 77 11/23/16 05:18 79 11/23/16 04:40 82 11/23/16 03:41 81 11/23/16 03:41 98.9 81 19 111/64 93 11/23/16 02:00 80 11/23/16 01:00 78 11/23/16 00:18 83 11/22/16 23:31 82 11/22/16 23:15 98.7 83 16 126/74 96 11/22/16 22:00 92 11/22/16 21:00 84 11/22/16 20:00 91 11/22/16 20:00 99.9 85 18 127/77 94 11/22/16 18:09 91 11/22/16 17:00 88 11/22/16 16:00 92 11/22/16 15:15 98.9 84 17 126/70 94 11/22/16 15:00 84 11/22/16 14:00 78 11/22/16 13:01 82 11/22/16 12:30 75 11/22/16 11:20 98.4 81 19 102/64 94 11/22/16 11:00 80 11/22/16 10:30 75 11/22/16 09:00 80 11/22/16 08:00 78 11/22/16 07:45 98.4 78 17 112/71 93 11/22/16 07:00 78 11/22/16 06:19 76 11/22/16 05:00 82 11/22/16 04:08 78 11/22/16 03:47 77 11/22/16 03:47 98.6 83 15 121/66 95 11/22/16 02:00 79 11/22/16 01:35 87 11/22/16 00:00 74 11/21/16 23:54 98.4 82 15 122/76 94 11/21/16 23:00 78 11/21/16 22:00 78 11/21/16 21:00 78 11/21/16 20:00 84 11/21/16 19:55 98.3 88 15 131/78 93 11/21/16 19:00 87 11/21/16 18:34 87 11/21/16 17:16 77 11/21/16 16:47 75 11/21/16 15:45 72 11/21/16 15:30 97.9 70 18 114/66 96 Room Air 11/21/16 15:15 70 18 116/67 95 Room Air 11/21/16 15:00 73 17 110/65 96 Room Air 11/21/16 14:45 76 17 145/75 100 Nasal Cannula 3 11/21/16 14:28 97.9 75 17 151/76 100 Nasal Cannula 3 11/21/16 10:45 97.9 68 18 119/70 94 Discharge Condition: Good Discharge Disposition: Discharge Home Discharge Instructions: Pt will leave wound vac on till Monday11/28/16 Pt will come to our out patient clinic for removal of wound vac (11/28/16) Encourage frequent ambulation Call the office to report any new onset fever, redness, drainage at surgical incision site Any questions or concerns: Call [facility] at [facility] [phone] Porsha Grace Nov 24, 2016 09:57
[2016-11-24] MEDS ORDERED: WALKER WHEELS/F1 MIS (09:58)
[2016-11-24] MEDS ORDERED: HYDR-3516 PO (10:32)
== END 2016-11-24 12:03 | disposition home or self-care (01) | DRG 272 ==
LOC: HSDI 11-21 09:47 → EDSTATUS 11-21 12:00 → HCIN 11-21 16:10
PROVIDERS: ADMIT Surgery; ATTEND Surgery
PROC: 041L0JJ Bypass Left Femoral Artery to Left Femoral Artery with Synthetic Substitute, Open Approach (ICD-10-PCS; 2016-11-21)
PROC: 041J0JJ Bypass Left External Iliac Artery to Left Femoral Artery with Synthetic Substitute, Open Approach (ICD-10-PCS; principal; 2016-11-21 11:47)
PROC: 04BL0ZZ Excision of Left Femoral Artery, Open Approach (ICD-10-PCS; 2016-11-21 11:47)
DX: I70.212 Atherosclerosis of native arteries of extremities with intermittent claudication, left leg (principal)
CPT/HCPCS: 80048; 85027; 86850; 86900; 86901; 87640; 87641; C1768; C1769; J0690; J1644; J1650; J2370; J2710; J3010; J3370; J7120

== ENCOUNTER → 2016-11-16 | Outpatient (CLI) | payer MEDICARE ==
[~2016-11-16] MED LIST changes: -ADVAI100I PO; -ALBU8I INH; +ASPI1TAB69 PO; +ASPI81TA11 PO; -ASPI81TA82 PO; -ATOR20TA PO; +ATOR20TA15 PO; +CILO100T PO; -CLOP75 PO; -CYCL1PAK PO; +CYCL1TAB29 PO; +DIGO0.12 PO; -FISH100020 PO; -FLON0.053; +FLUT50SP EACH NARE; +HYDR-3516 PO; -LANO0.1212 PO; -LISI-357 PO; +LISI-519 PO; -METO25 PO; +METO50TA PO; -MONT10 PO; +OXYC-392 PO; -SPIRCAP INH; +UMEC1AER INH; +VENTAER INH; +WALKER WHEELS/F1 MIS; -Z.0.NO CURRENT MEDS; -[UNRECOGNIZED DRUG - CODE] PO
[2016-11-16 12:22] LABS: HEMATOCRIT 43.7 % (39.0-51.0); MEAN CELL VOLUME 90.5 FL (80.0-100.0); MEAN CORPUSCULAR HGB CONC 34.2 % (32.0-36.0); PLATELET COUNT 271 TH/MM3 (150-450); RED BLOOD COUNT 4.83 MIL/MM3 (4.50-5.90); RED CELL DISTRIBUTION WIDTH 14.6 % (11.6-17.2); REVIEW FLAG FINAL; WHITE BLOOD COUNT 7.8 TH/MM3 (4.0-11.0)
[2016-11-16 12:30] LABS: APTT (PATIENT) 26.4 SEC (24.3-30.1); PROTHROMBIN TIME - PATIENT 10.7 SEC (9.8-11.6)
[2016-11-16 12:34] LABS: BLOOD, URINE NEG (NEG); COMMENT (UR) CULT NOT INDICATED; CULTURE IF INDICATED CULT NOT INDICATED; GLUCOSE,URINE NEG (NEG); KETONE, URINE NEG (NEG); NITRITE,URINE NEG (NEG); URINE COLOR YELLOW (YELLW/STRAW)
[2016-11-16 12:36] LABS: BICARBONATE 27.2 MEQ/L (21.0-32.0); POTASSIUM 4.5 MEQ/L (3.5-5.1)
--- NOTE | 2016-11-16 13:03 | RADRPT ---
EXAM DATE/TIME: 11/16/2016 12:12 [place] COMPARISON: No previous studies available for comparison. INDICATIONS : Evaluate for pneumonia, pneumothorax, or communicable disease. MEDICAL HISTORY : None. SURGICAL HISTORY : None. ENCOUNTER: Initial ACUITY: 1 day PAIN SCORE: 0/10 LOCATION: Bilateral chest FINDINGS: PA and lateral views of the chest. The lungs are clear. Cardiomediastinal silhouette within normal li mits. No evidence of pleural effusion or pneumothorax. CONCLUSION: No acute cardiopulmonary disease identified. Oliverio Castañeda MD on November 16, 2016 at 13:00 Board Certified Radiologist. This report was verified electronically.
--- NOTE | 2016-11-17 12:04 | EKG ---
Date Performed: 11/16/2016 Time Performed: 11:13:07 PTAGE: 71 years EKG: Sinus rhythm POSSIBLE LEFT ATRIAL ENLARGEMENT BORDERLINE ECG Compared to prior tracing no significant change DOCTOR: Lopez Buchanan Interpretating Date/Time 11/17/2016 12:02:46
== END ==
LOC: CPRE 10:51
PROVIDERS: ATTEND Surgery
DX: Z01.810 Encounter for preprocedural cardiovascular examination (principal); Z01.811 Encounter for preprocedural respiratory examination; Z01.812 Encounter for preprocedural laboratory examination; I73.9 Peripheral vascular disease, unspecified; R94.31 Abnormal electrocardiogram [ECG] [EKG]
CPT/HCPCS: 36415; 71020; 80048; 81001; 85027; 85610; 85730; 93005